=== PATIENT | male | born 1960 | race Caucasian/White ===

== ENCOUNTER 2023-01-23 13:08 | Outpatient (AMB) | payer OTHER, SELFPAY ==
--- NOTE | 2023-01-23 13:11 | A.OFFPC_ITS ---
Vital Signs 01/23/23 13:12 Height 6 ft Weight 193 lb BMI 26.2 BP 132/84 Blood Pressure Location Lt brachial Position Sitting Respiration 12 Pulse 65 Pulse Source Pulse Oximeter Pulse Oximetry (%) 98 Oxygen Delivery Method Room Air Intake Visit Reasons: [employer] WORK[employer]/HTN Lead Sql Developer Required: No Accompanied by: Self / Same As Patient Allergies No Known Allergies Allergy (Verified 01/23/23 13:31) Medication List - Last Reconciled 01/23/23 by DEYSI Wade No Known Home Meds Tobacco use date assessed: 01/23/23 Dental Screening Dental Screen Date: 01/23/23 Did you have a dental visit in the last 12 months?: No Did you have a dental problem in the last 6 months where you did not have access to dental care?: No Was dental information given to patient?: Yes HPI HPI Comments History of Present Illness Details 62-year-old male new patient presents to [facility] to [facility] care. Past medical history significant for HTN, hepatitis-C Rich patient states he has rec eived treatment for the past has under gone on liver biopsy which was unremarkable. Patient reports was previously on amlodipine mg daily and hydrochlorothiazide however he states he has not had insurance so he has not been blood pressure medication in many years. Patient reports he has had elevated blood pressures the past while being office medication as high as 170's/130. Blood pressure elevated 132/84, will re-initiate patient on amlodipine 5 mg daily. Eye exam: Current Colonoscopy: Patient reports had a age 52 was recommended to have a 10 year follow-up, discuss referral to GI with patient for repeat colonoscopy however he declines at this time. [facility] Medical History (Updated 01/23/23 @ 13:36 by DEYSI Wade) Hepatitis C Surgical History (Updated 01/23/23 @ 13:36 by DEYSI Wade) H/O varicose vein stripping H/O hernia repair Family History (Updated 01/23/23 @ 13:36 by DEYSI Wade) Father Cancer Mother Pancreatic cancer Social History (Updated 01/23/23 @ 13:37 by DEYSI Wade) Housing: Apartment Alcohol intake: never Patient Tobacco Use Status: Former Tobacco user Tobacco use type: Cigarette e-Cigarette/Vaping Use: Currently Using (THC) Substance Use Type: Marijuana service: No Current occupational status: employed 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 1. Little interest or pleasure in doing things: not at all 2. Feeling down, depressed, or hopeless: not at all 3. Trouble falling or staying asleep, or sleeping too much: several days (sleeping too much) 4. Feeling tired or having little energy: not at all 5. Poor appetite or overeating: not at all 6. Feeling bad about yourself - or that you are a failure or have let yourself or your family down: not at all 7. Trouble concentrating on things, such as reading the newspaper or watching television: not at all 8. Moving or speaking so slowly that other people could have noticed. Or the opposite - being so fidgety or restless that you have been moving around a lot more than usual: not at all 9. Thoughts that you would be better off or of hurting yourself in some way: not at all Total score: 1 Depression Screening Interpretation: Negative 77715 - PHQ-9 Billing: Yes Source: Developed by Drs. Glenn Juarez, Tere Dempsey, Gerald Sanabria and colleagues, with an educational wolfgang from [email or web address]. Thrive Questionnaire Date Thrive assessed: 01/23/23 I am a: Patient What is your living situation today?: I have a steady place to live Within the past 12 months, did the food you bought not last and you didn't have the money to get more?: Never true Within the past 12 months, did you worry whether your food would run out before you got money to buy more?: Never true Do you have trouble paying for medicines?: No Do you have trouble getting transportation to medical appointments?: No Do you have trouble paying your heating and electricity bill?: No Do you have trouble taking care of your child, family member or friend?: No Do you have trouble with day-to-day activities such as bathing, preparing meals, shopping, managing finances, etc.?: No Are you currently unemployed and looking for a job?: No Are you interested in more education?: No Please select the resources that you would like help with: None Currently or been in a relationship where the following occur: no concerns r eported AUDIT C Alcohol Use Questionnaire (AUDIT-C) 1. How often do you have a drink containing alcohol?: Never 3. How often do you have six or more drinks on one occasion?: Never Total Score: 0 ARTHUR-7 AMB Questionnaire ARTHUR-7 Date ARTHUR - 7 assessed: 01/23/23 Feeling nervous, anxious, or on edge: 0 = Not at all Not being able to stop or control worryin = Not at all Worrying too much about different things: 0 = Not at all Trouble relaxin = Not at all Being so restless that it is hard to sit still: 0 = Not at all Becoming easily annoyed or irritable: 0 = Not at all Feeling afraid as if something awful might happen: 0 = Not at all Total ARTHUR-7 score (0-4 normal; 5-9 mild; 10-14 moderate; 15-21 severe): 0 Source: Developed by Drs. Glenn Juarez, Tere Dempsey, Gerald Sanabria and colleagues, with an educational wolfgang from [email or web address]. ARTHUR-7 Assessment Billing ARTHUR-7 Assessment Tool: ARTHUR-7 Assessment 18310 Review of Systems Const Denies chills, Denies fatigue, Denies fever(s) and Denies poor appetite Eyes Denies no additional complaints ENT Reports Normal hearing present Card Denies chest pain, Denies syncope, Denies rapid heart rate and Denies dyspnea Resp Denies cough and Denies dyspnea GI Denies change in stool character, Denies constipation, Denies diarrhea, Denies nausea and Denies vomiting Denies dysuria, Denies urinary frequency and Denies urinary urgency Neuro Reports Normal hearing present, Denies confusion and Denies syncope Psych Denies confusion Endo Denies fatigue Physical exam (Primary Care) Vital Signs: Last Vital Signs Pulse 65 01/23/23 13:12 Resp 12 01/23/23 13:12 BP 132/84 01/23/23 13:12 Pulse Ox 98 01/23/23 13:12 Oxygen Delivery Method Room Air 01/23/23 13:12 BMI result Body Mass Index 26.2 Tobacco/Smoking Status: Tobacco use Status Tobacco use date assessed 01/23/23 01/23/23 13:18 Patient Tobacco Use Status Former Tobacco user 01/23/23 13:18 Tobacco use type Cigarette 01/23/23 13:18 e-Cigarette/Vaping Use Currently Using (THC) 01/23/23 13:18 PHQ-9: PHQ-9 Score PHQ-9: Total score 1 01/23/23 13:26 Depression Screening Interpretation: Negative Thrive Assessment: Date of Thrive Assessment Date Thrive assessed 01/23/23 01/23/23 13:26 Currently or been in a relationship where the following occur: no concerns reported Const General: No confusion Orientation/consciousness: No confusion HENMT Head: Yes normocephalic and Yes atraumatic Eyes Conjunctivae: conjunctivae normal Chest Chest palpation & inspection: normal inspection of the chest Resp Effort & Inspection: normal respiratory effort Auscultation: clear to auscultation bilaterally, no crackles, no rhonchi and no wheezes Cardio Rate: regular rate Rhythm: regular rhythm Heart sounds: S1 normal heart sound present and S2 normal heart sound present GI Inspection: Yes normal to inspection Neuro General: No confusion Cranial nerves: Yes Normal hearing present Extrem General: No edema Assessment and Plan Assessment & Plan (1) Hypertension: Code(s): I10 - Essential (primary) hypertension Plan: Amlodipine 5 mg by mouth daily ordered. Patient advised to follow low-salt diet and exercise. Patient advised to check blood pressure at home periodically after sitting down for 3-5 minutes and keep a log and notify PCP if blood pressure is elevated above goal <140/90. Plan Follow-up in 3 months for physical exam Orders: Orders Complete Blood Count Auto Diff Today Z13.0 - Encounter for screening for diseases of the blood and blood-forming organs and certain disorders involving the immune mechanism Lipid Panel Today Z13.220 - Encounter for screening for lipoid disorders TSH reflex Free T4 Today Z13.29 - Encounter for screening for other suspected endocrine disorder PSA,Total (Free>4and<10) Today Z12.5 - Encounter for screening for malignant neoplasm of prostate Comprehensive [place]. Panel Fast Today Z13.1 - Encounter for screening for diabetes mellitus Medications: New amlodipine 5 mg PO DAILY 90 tabs 1RF Coding Level of Care Code New Pt Level 3 (21583) Diagnoses Hypertension I10 Additional Codes ARTHUR-7 Assessment Billing - ARTHUR-7 Assessment Tool: ARTHUR-7 Assessment 13084 ([id number])
[2023-01-23 13:12] VITALS: BP 132/84; PULSE 65; RESP 12; O2SAT 98; BMI 26.2
== END 2023-01-23 13:45 | disposition home or self-care (01) ==
PROVIDERS: PCP Nurse Practitioner Family; Visit Provider Nurse Practitioner Family
DX: I10 Essential (primary) hypertension (principal)
CPT/HCPCS: 99203

== ENCOUNTER 2023-01-31 07:31 | Outpatient (REF) | payer OTHER, SELFPAY | END 2023-01-31 07:32 | disposition home or self-care (01) | LOC: HO.LAB 07:31 | PROVIDERS: PCP Nurse Practitioner Family; Visit Provider Nurse Practitioner Family | DX: Z12.5 Encounter for screening for malignant neoplasm of prostate (principal); Z13.29 Encounter for screening for other suspected endocrine disorder; Z13.220 Encounter for screening for lipoid disorders; Z13.0 Encounter for screening for diseases of the blood and blood-forming organs and certain disorders involving the immune mechanism | CPT/HCPCS: 36415; 80053; 80061; 84153; 84443; 85025 ==

== ENCOUNTER 2023-02-13 08:30 | Outpatient (REF) | payer OTHER, SELFPAY ==
[2023-02-13 09:13] LABS: Estimated Average Glucose 91 mg/dL; Hemoglobin A1c % 4.8 % (<6.0)
[2023-02-13 10:11] LABS: Alanine Aminotransferase 12 U/L (0-40); Albumin Level 4.5 g/dL (3.5-5.0); Alkaline Phosphatase 63 U/L (39-117); Anion Gap 12 (12-20); Aspartate Amino Transferase 13 U/L (5-37); Bilirubin Total 0.6 mg/dL (0.0-1.0); Blood Urea Nitrogen 19 mg/dL (9-16); Calcium 9.8 mg/dL (8.4-10.2); Carbon Dioxide 27 mmol/L (22-29); Chloride 103 mmol/L (96-108); Estimated Glomerular Filt Rate > 60; Glucose Fasting 112 mg/dL (60-99); Potassium 4.3 mmol/L (3.3-5.1); Sodium 138 mmol/L (135-145); Total Protein 7.5 g/dL (6.5-8.0)
== END 2023-02-13 08:31 | disposition home or self-care (01) ==
LOC: HO.LAB 08:30
PROVIDERS: PCP Nurse Practitioner Family; Visit Provider Nurse Practitioner Family
DX: R73.01 Impaired fasting glucose (principal)
CPT/HCPCS: 36415; 80053; 83036